=== PATIENT | female | born 1990 | race Caucasian/White ===

== ENCOUNTER → 2018-11-09 11:03 | Outpatient (CLI) | payer OTHER, SELFPAY ==
[2015-05-12 04:21] VITALS: BMI 32.9
[2018-11-13 10:47] LABS: HPV Reflexed? NOT INDICATED
== END ==
PROVIDERS: Visit Provider Obstetrics & Gynecology
DX: Z12.4 Encounter for screening for malignant neoplasm of cervix (principal)
CPT/HCPCS: 88175; G0145